=== PATIENT | male | born 1940 | race Caucasian/White ===

== ENCOUNTER 2017-11-27 20:15 | Emergency (ER) | payer MEDICARE ==
[~2017-11-27] VITALS: Ht 193 cm; Wt 127.4 kg
[2017-11-27 20:50] VITALS: BP 180/80
[2017-11-27] MEDS ORDERED: TOPROL XL25 M1 PO (20:52)
[2017-11-27] MEDS ORDERED: PRAVASTATIN40 MG PO (20:53)
== END 2017-11-27 20:50 | disposition home or self-care (01) ==
LOC: ED 20:15
PROC: 09C3XZZ Extirpation of Matter from Right External Auditory Canal, External Approach (ICD-10-PCS; principal; 2017-11-27)
DX: T16.1XXA Foreign body in right ear, initial encounter (principal); X58.XXXA Exposure to other specified factors, initial encounter; Z86.73 Personal history of transient ischemic attack (TIA), and cerebral infarction without residual deficits